=== PATIENT | female | born 1940 | race African-American/Black ===

== ENCOUNTER 2024-06-29 11:05 | Emergency (ER) | payer BC ==
[~2024-06-29] VITALS: Ht 167.6 cm; Wt 70.0 kg
[2024-06-29 11:07] VITALS: O2SAT 97
[2024-06-29] MEDS ORDERED: MECLIZINE 25MG TABLET PO ONE (11:45)
[2024-06-29 12:36] LABS: CHLORIDE 108 mEq/L (98-107); POTASSIUM 4.6 mEq/L (3.5-5.1); SODIUM 141 mEq/L (136-145)
[2024-06-29 12:37] LABS: CALCIUM 9.3 mg/dL (8.7-10.4); CARBON DIOXIDE 24 mEq/L (21-32)
[2024-06-29 12:39] LABS: BASOPHILS % 0.7 % (0.0-2.0); EOSINOPHILS % 2.4 % (0.0-5.0); HEMATOCRIT. 44.1 % (36.0-48.0); HEMOGLOBIN. 14.3 g/dL (12.0-16.0); LYMPHOCYTES % 14.1 % (20.0-50.0); MEAN CORPUSCULAR HEMOGLOBIN 27.4 pg (28.0-32.0); MEAN CORPUSCULAR HGB CONC 32.4 g/dL (31.0-37.0); MEAN CORPUSCULAR VOLUME 84.5 fL (81.0-99.0); MEAN PLATELET VOLUME 9.6 fl (7.4-10.4); MONOCYTES % 6.1 % (2.0-8.0); NEUTROPHILS % 76.7 % (40.0-76.0); PLATELET 216 x1000/uL (130-400); RED BLOOD CELL COUNT 5.23 mill/uL (4.2-5.4); RED CELL DISTRIBUTION WIDTH 15.2 % (11.6-14.6); WHITE BLOOD COUNT 7.5 x1000/uL (4.5-11.0)
[2024-06-29 12:42] LABS: CREATININE 1.1 mg/dL (0.6-1.0); GLUCOSE 110 mg/dL (70-105); INR 0.9; PARTIAL THROMBOPLASTIN TIME 28.5 sec (23.4-31.0); PROTHROMBIN TIME 10.6 sec (9.6-11.0); UREA NITROGEN BLOOD 12 mg/dL (9-23)
[2024-06-29 12:43] LABS: TROPONIN I HIGH SENSITIVITY 18 ng/L (3.0-34)
[2024-06-29] MEDS ORDERED: MECL-299 MT (12:56)
[2024-06-29] MEDS: MECLIZINE 25MG TABLET PO NR (14:41)
[2024-06-29 14:48] VITALS: BP 139/71; PULSE 71; RESP 18; TEMP 36.89184; O2SAT 99
== END 2024-06-29 14:51 | disposition home or self-care (01) ==
LOC: ER 11:22
DX: R42 Dizziness and giddiness (principal); I10 Essential (primary) hypertension; Z88.0 Allergy status to penicillin
CPT/HCPCS: 99285; 70450; 71045; 80048; 83880; 85025; 85610; 85730; 84484; 36415; 93005; J8597